=== PATIENT | female | born 1980 | race Caucasian/White ===

== ENCOUNTER 2021-04-12 16:19 | Emergency (ER) | payer OTHER ==
[~2021-04-12] VITALS: Ht 144.8 cm; Wt 52.2 kg
[2021-04-12 16:24] VITALS: BP 134/80
[2021-04-12] MEDS ORDERED: PREDNISONE 10 M10 M1 PO (16:47)
== END 2021-04-12 17:15 | disposition home or self-care (01) ==
LOC: ER 16:19
DX: M25.461 Effusion, right knee (principal); F15.10 Other stimulant abuse, uncomplicated; Z98.890 Other specified postprocedural states